=== PATIENT | male | born 1960 | race Caucasian/White ===

== ENCOUNTER 2018-01-11 11:39 | Emergency (ER) | payer MEDICARE ==
[2018-01-11 11:51] VITALS: O2SAT 99
[2018-01-11 13:41] VITALS: BP 159/70; PULSE 70; RESP 20; TEMP 97.5
--- NOTE | 2018-01-11 13:41 | C.PDOC ---
History Of Present Illness 57 y/o male presents to the ER complaining of headache and numbness in his left arm. Patient states that he has associated dizziness. Patient reports that he did not take any medications. Denies having first headache, longest lasting headache, thunderclap headache, worst headache of his life, changes in vision, weakness in legs, nausea, and vomiting. Time Seen by Provider: 01/11/18 12:03 Chief Complaint (Nursing): High Blood Pressure History Per: Patient History/Exam Limitations: no limitations Onset/Duration Of Symptoms: Hrs Current Symptoms Are (Timing): Still Present Severity: Moderate Past Medical History Reviewed: Historical Data, Nursing Documentation, Vital Signs Vital Signs: Last Vital Signs Temp 97.5 F L 01/11/18 13:15 Pulse 70 01/11/18 13:15 Resp 20 01/11/18 13:15 BP 159/70 H 01/11/18 13:15 Pulse Ox 99 01/11/18 14:01 - Medical History PMH: Post Traumatic Stress Disorder Other Surgeries: Hx of surgeries Family History: States: No Known Family Hx - Social History Hx Alcohol Use: No Hx Substance Use: No - Immunization History Hx Tetanus Toxoid Vaccination: No Hx Influenza Vaccination: No Hx Pneumococcal Vaccination: No Review Of Systems Except As Marked, All Systems Reviewed And Found Negative. Constitutional: Negative for: Fever, Chills Eyes: Negative for: Vision Change Cardiovascular: Negative for: Chest Pain Respiratory: Negative for: Shortness of Breath Neurological: Positive for: Headache, Dizziness, Other (left arm parasthesia) Physical Exam - Physical Exam Appears: Non-toxic, No Acute Distress Skin: Normal Color, Warm, Dry Head: Atraumatic, Normacephalic Eye(s): bilateral: Normal Inspection Nose: Normal Oral Mucosa: Moist Neck: Supple Chest: Symmetrical Cardiovascular: Rhythm Regular Respiratory: Normal Breath Sounds, No Rales, No Rhonchi, No Wheezing Gastrointestinal/Abdominal: Normal Exam, Soft, No Tenderness, No Guarding, No Rebound Extremity: Normal ROM Neurological/Psych: Oriented x3, Normal Speech, Normal Cranial Nerves (Cranial Nerves 2-12 intact, no asymmetry), Normal Motor, Normal Sensation, Other (no signs of extremity weakness) ED Course And Treatment ECG: Interpreted By Me, Viewed By Me ECG Rhythm: Sinus Rhythm Interpretation Of ECG: NSR with normal intervals, normal axises, and no ST/ T wave abnormalities Rate From EC O2 Sat by Pulse Oximetry: 99 (RA) Pulse Ox Interpretation: Normal Medical Decision Making Medical Decision Making: Assessment: Headache, Dizziness Plan: --Labs --UA --CXR --Sudafed PO --Acetaminophen PO --Meclizine PO Updates: The patient declines to have further medical evaluation and treatment and wishes to leave the Emergency Department. This action is against my medical advice to the patient, and with informed refusal. The patient was told that evaluation and treatment are necessary and a full explanation of the rationale was given. The risks of leaving were explained to the patient and include, but are not limited to, worsening of known or currently unknown conditions, permanent disability and from undiagnosed or untreated conditions The patient has the capacity to make this informed decision and understands the clinical situation and my explanation of the risks of leaving. The patient voluntarily accepts these risks, and a signed AMA form documenting our conversation was obtained. The patient was given the opportunity to ask questions and reconsider. The patient was encouraged to return to the Emergency Department at any time for further care. Disposition - Disposition Disposition: AGAINST MEDICAL ADVICE Disposition Time: 14:30 Condition: GOOD Forms: [facility] (Nepali) - Clinical Impression Clinical Impression: Dizziness, Headache - Scribe Statement The provider has reviewed the documentation as recorded by the Fernandoibromán Bowie Provider Attestation: All medical record entries made by the Fernandoibe were at my direction and personally dictated by me. I have reviewed the chart and agree that the record accurately reflects my personal performance of the history, physical exam, medical decision making, and the department course for this patient. I have also personally directed, reviewed, and agree with the discharge instructions and disposition.
--- NOTE | 2018-01-12 11:54 | CARD ---
APPROVED REPORT Date of service: 01/11/2018 EKG Measurement Heart [id number] <Conclusion> Sinus bradycardia with sinus arrhythmia Otherwise normal ECG
== END 2018-01-11 13:44 | disposition left against medical advice (07) ==
LOC: C.ER 11:39
DX: R51 Headache (principal); R42 Dizziness and giddiness

== ENCOUNTER 2018-04-04 19:21 | Emergency (ER) | payer MEDICARE ==
[2018-04-04 19:26] VITALS: BP 137/82; PULSE 87; RESP 16; TEMP 98.1; O2SAT 98
[2018-04-04] MEDS ORDERED: Tmp-Smz 800 mg-160 mg DS Tab PO STA (19:51)
--- NOTE | 2018-04-04 20:01 | C.PDOC ---
History Of Present Illness 57 year old male presents to the ED for evaluation of redness to right anterior tibia/fibula region. Patient saw his PMD, who prescribed pain medication, silvadene and medrol dose pack. Patient was not prescribed antibiotics. Patient denies fever, chills, shortness of breath or history of diabetes. Time Seen by Provider: 04/04/18 19:43 Chief Complaint (Nursing): Lower Extremity Problem/Injury History Per: Patient History/Exam Limitations: no limitations Onset/Duration Of Symptoms: Hrs Current Symptoms Are (Timing): Still Present Additional History Per: Patient Past Medical History Reviewed: Historical Data, Nursing Documentation, Vital Signs Vital Signs: Last Vital Signs Temp 98.1 F 04/04/18 19:24 Pulse 87 04/04/18 19:24 Resp 16 04/04/18 19:24 BP 137/82 04/04/18 19:24 Pulse Ox 98 04/04/18 19:24 - Medical History PMH: Post Traumatic Stress Disorder Surgical History: No Surg Hx Family History: States: Unknown Family Hx - Social History Hx Alcohol Use: No Hx Substance Use: No - Immunization History Hx Tetanus Toxoid Vaccination: No Hx Influenza Vaccination: No Hx Pneumococcal Vaccination: No Review Of Systems Constitutional: Negative for: Fever, Chills Respiratory: Negative for: Shortness of Breath Musculoskeletal: Positive for: Leg Pain (right ) Physical Exam - Physical Exam Appears: Non-toxic, No Acute Distress Skin: Normal Color, Warm, Dry, Other (faint erythema to right anterior tibia/fib toribio region. no gangrenous process ) Head: Atraumatic, Normacephalic Eye(s): bilateral: Normal Inspection Oral Mucosa: Moist Neck: Supple Chest: Symmetrical, No Deformity, No Tenderness Cardiovascular: Rhythm Regular Respiratory: Normal Breath Sounds, No Rales, No Rhonchi, No Wheezing Extremity: Normal ROM, No Calf Tenderness, Capillary Refill (less than 2 seconds ), No Swelling (gross ), No Other (crepitus ) Neurological/Psych: Oriented x3, Normal Speech, Normal Cognition ED Course And Treatment O2 Sat by Pulse Oximetry: 98 (on RA ) Pulse Ox Interpretation: Normal Medical Decision Making Medical Decision Making: Assessment: cellulitis Progress: Bactrim DS and Motrin PO given. Disposition - Disposition Disposition: HOME/ ROUTINE Disposition Time: 20:59 Condition: STABLE Additional Instructions: follow up with your doctor within 2 days call to make an appointment take medication as prescribed return to ER if symptoms worsens or progress Prescriptions: Sulfamethoxazole/Trimethoprim [Bactrim DS 800 mg-160 mg] 1 tab PO BID #20 tab Instructions: Cellulitis (Skin Infection), Adult (DC) Forms: [facility] (Serbian), General Discharge Instructions - Clinical Impression Clinical Impression: Cellulitis - Scribe Statement The provider has reviewed the documentation as recorded by the Fernandoibe Provider Attestation: All medical record entries made by the Sandra were at my direction and personally dictated by me. I have reviewed the chart and agree that the record accurately reflects my personal performance of the history, physical exam, medical decision making, and the department course for this patient. I have also personally directed, reviewed, and agree with the discharge instructions and disposition.
[2018-04-04] MEDS ORDERED: Tmp-Smz 800 mg-160 mg DS Tab ONE (20:02)
== END 2018-04-04 20:39 | disposition home or self-care (01) ==
LOC: C.ER 19:21
DX: L03.115 Cellulitis of right lower limb (principal)